=== PATIENT | female | born 1955 | race Caucasian/White ===

== ENCOUNTER → 2024-08-30 | Outpatient (CLI) | payer MEDICARE ==
[~2024-08-30] MED LIST: AMOCLA875 PO; ATROVENT HFA12.9 GM IH; BENADRYL25 MG PO; CALCIUM 500 MG1 EAC2 PO; CENTRUM SILVER1 EAC2 PO; CEPH500 PO; HYDR1TAB94 PO; HYDROCORTISONE30 GM EXT; IBUP600 PO; NAPR500 PO; NITR100CA PO; OMEP20ER PO; ONDA4ODT MM; PEPCID40 MG PO; TIZA4 PO; TRIA15CR3; [UNRECOGNIZED DRUG - OTHER] PO
== END ==
LOC: LAB SHORT 07:48 → LAB 07:48
DX: N39.0 Urinary tract infection, site not specified (principal)
CPT/HCPCS: 87077; 87086; 87186

== ENCOUNTER 2025-05-22 09:02 | Day surgery (SDC) | payer MEDICARE, BC ==
[~2025-05-22] VITALS: Ht 160 cm; Wt 81.3 kg
[~2025-05-22 09:02] MED LIST changes: +Bupivacaine 0.5% W/EPI 1:200000 SDV 30 ML Vial ONE; +EXCEDRIN PM HE1 EACH; +Hydrocortiso453.6 G3
[2025-05-22] MEDS ORDERED: CeFAZolin Sodium 2,000 MG VIAL ONE (09:09)
[2025-05-22] MEDS ORDERED: C COMPLEX1000 M1 PO (09:20)
[2025-05-22] MEDS ORDERED: FentaNYL Citrate 50 MCG/ML 2 ML Injection ONE (10:20)
[2025-05-22 11:37] VITALS: BP 136/61
== END 2025-05-22 11:30 | disposition home or self-care (01) ==
LOC: ORSCSDS 09:02
PROVIDERS: Podiatrist Foot & Ankle Surgery
PROC: 0LNW0ZZ Release Left Foot Tendon, Open Approach (ICD-10-PCS; principal; 2025-05-22 10:30)
DX: M20.42 Other hammer toe(s) (acquired), left foot (principal); E66.9 Obesity, unspecified; Z68.31 Body mass index [BMI] 31.0-31.9, adult; Z87.891 Personal history of nicotine dependence
CPT/HCPCS: A6253; J0690; J2704; J3010; J7120

== ENCOUNTER → 2025-07-09 | Outpatient (CLI) | payer MEDICARE, BC ==
[~2025-07-09] MED LIST changes: -Bupivacaine 0.5% W/EPI 1:200000 SDV 30 ML Vial ONE; +C COMPLEX1000 M1 PO
[2025-07-09 18:38] LABS: Bacterial Vaginosis PCR Negative (NEGATIVE); Candida Group, PCR NOT DETECTED (NOT DETECT); Candida glabrata-krusei, PCR NOT DETECTED (NOT DETECT)
== END ==
LOC: LAB 16:30 → LAB SHORT 16:30
DX: N89.8 Other specified noninflammatory disorders of vagina (principal)
CPT/HCPCS: 81515

== ENCOUNTER 2025-07-11 01:14 | Day surgery (SDC) | payer MEDICARE, BC ==
[2025-07-11 14:57] VITALS: BP 134/79
[2025-07-11 15:54] VITALS: BP 149/74
== END 2025-07-11 15:50 | disposition home or self-care (01) ==
LOC: ATC 01:14
DX: M81.0 Age-related osteoporosis without current pathological fracture (principal); E78.5 Hyperlipidemia, unspecified; N18.2 Chronic kidney disease, stage 2 (mild); Z91.048 Other nonmedicinal substance allergy status; Z88.1 Allergy status to other antibiotic agents; Z88.2 Allergy status to sulfonamides; Z91.040 Latex allergy status; Z91.013 Allergy to seafood
CPT/HCPCS: 96365; J3489